=== PATIENT | female | born 1960 | race Two or more races ===

== ENCOUNTER 2021-09-24 12:15 | Inpatient (IN) | payer OTHER ==
[~2021-09-24] VITALS: Ht 170.2 cm; Wt 82.1 kg
[2021-09-24] MEDS ORDERED: PANADOL PO (15:28)
[2021-09-24] MEDS ORDERED: GABAPENTIN PO (15:29)
== END 2021-09-27 12:13 | disposition home or self-care (01) | DRG 741 ==
LOC: O/R 09-25 07:36 → SURH 09-25 12:15 → OB/GYN 09-25 15:01 → SURH 09-25 15:30 → OB/GYN 09-27 12:13
PROVIDERS: ADMIT Specialist; ATTEND Specialist
PROC: 0UT20ZZ Resection of Bilateral Ovaries, Open Approach (ICD-10-PCS; 2021-09-25)
PROC: 0UT70ZZ Resection of Bilateral Fallopian Tubes, Open Approach (ICD-10-PCS; 2021-09-25)
PROC: 07BC0ZZ Excision of Pelvis Lymphatic, Open Approach (ICD-10-PCS; 2021-09-25)
PROC: 0UT90ZZ Resection of Uterus, Open Approach (ICD-10-PCS; principal; 2021-09-25 15:30)
DX: C54.1 Malignant neoplasm of endometrium (principal); D36.0 Benign neoplasm of lymph nodes; E66.01 Morbid (severe) obesity due to excess calories; N95.0 Postmenopausal bleeding